=== PATIENT | female | born 1990 | race Caucasian/White ===

== ENCOUNTER 2019-11-12 17:00 | Emergency (ER) | payer SELFPAY ==
[2019-11-12 17:12] VITALS: PULSE 98; RESP 17; TEMP 36.8; O2SAT 98; BMI 48.9
--- NOTE | 2019-11-12 17:21 | W.ED.GENADLT ---
HPI - General Adult General: Chief complaint: General Medical Stated complaint: Sore Throat Time Seen by Provider: 11/12/19 17:14 History of Present Illness: HPI narrative: Patient complains of sore throat last couple 3 days and swelling. Denies fever and chills. Did have a knot come up on the back of her neck. On left side. MD complaint: sore throat Onset (ago): day(s) Associated symptoms: Deny chest pain, dyspnea, headache(s), nausea, rash or vomiting Review of Systems Const: Denies: fever, chills or body aches Eyes: Denies: change in vision or blurry vision ENMT: Reports: painful swallowing; Denies: throat pain or nasal congestion Card: Denies: chest pain or shortness of breath on exertion Resp: Denies: shortness of breath, productive cough or non-productive cough GI: Denies: abdominal pain, nausea or vomiting Musc: Denies: extremity pain Skin/Breast: Denies: rash Neuro: Denies: headache Psych: Denies: anxiety or depression Alden/Lymph: Reports: enlarged lymph nodes (Left posterior neck) and tender lymph nodes; Denies: easy bruising PFSH ED PFSH: Statuses (acute, chronic, etc) shown below reflect problem list status as previously entered and may not be historically accurate Social History Smoking and tobacco status: current every day smoker Female Reproductive History: Date of last menstrual period: 10/22/19 Physical Exam Const: COMMON NORMALS: no apparent distress, average body habitus and oriented x3 HENMT: COMMON NORMALS: normocephalic HEAD & SCALP: normal to inspection and normocephalic FACE & SINUS: normal facial exam THROAT: posterior oropharynx abnormal (Has multiple red spots back of throat at the top.) Eye: COMMON NORMALS: conjunctivae normal GENERAL EYE: normal appearance of both eyes CONJUNCTIVA: Yes conjunctivae normal Neck/C-Spine: COMMON NORMALS: no JVD Lymph: LYMPHATIC: lymphadenopathy (Has 1 nodule swollen left posterior neck) Chest: COMMONS NORMALS: inspection of chest normal Resp: COMMON NORMALS: normal respiratory effort and clear to auscultation bilaterally AUSCULTATION: clear to auscultation bilaterally Cardio: COMMON NORMALS: no JVD, regular rate and regular rhythm RATE: regular rate RHYTHM: regular rhythm GI: COMMON NORMALS: normal to inspection, nondistended, normoactive bowel sounds Extremity: COMMON NORMALS: normal to inspection and full ROM Neuro: COMMON NORMALS: oriented x3 Course Vital Signs: Vital signs: Vital Signs Temperature 98.3 F 11/12/19 17:12 Pulse Rate 98 11/12/19 17:12 Respiratory Rate 17 11/12/19 17:12 Pulse Oximetry 98 11/12/19 17:12 Coding Level of Care Code ED Transportation Director for Ayan Wilson
[2019-11-12] MEDS: cephALEXin 500 mg Capsule PO (18:05)
[2019-11-12] MEDS: predniSONE 20 mg Tablet PO (18:08)
[2019-11-12 18:24] LABS: Monoscreen Negative (Negative); Rapid Strep A Test Positive (Negative)
[2019-11-12 19:00] VITALS: BP 144/67; PULSE 70; RESP 18; O2SAT 97
== END 2019-11-12 19:02 | disposition home or self-care (01) ==
PROVIDERS: Emergency Provider Nurse Practitioner Family; PCP Family Medicine
DX: J02.9 Acute pharyngitis, unspecified (principal); F17.210 Nicotine dependence, cigarettes, uncomplicated
CPT/HCPCS: 86308; 87880; 99282; J7512

== ENCOUNTER 2021-02-18 15:46 | Outpatient (CLI) | payer SELFPAY ==
--- NOTE | 2021-02-18 17:14 | XRR_ITS ---
PROCEDURE INFORMATION: Exam: XR Right Ankle Exam date and time: 02/18/2021 5:17 PM Age: 30 years old Clinical indication: Pain; Ankle; Right; Additional info: RT. Ankle pain x 1 week TECHNIQUE: Imaging protocol: XR Right ankle. Views: 3 or more views. COMPARISON: No relevant prior studies available. FINDINGS: Bones/joints: Medial and lateral malleoli are normal. Ankle mortise is symmetrical. No fracture. Hindfoot is unremarkable. Tibiotalar joint and subtalar joint normal. Soft tissues: Normal. XR/XR ankle RT min 3V* [id number] IMPRESSION: Normal ankle.
== END 2021-02-18 15:47 | disposition home or self-care (01) ==
PROVIDERS: PCP Nurse Practitioner Family; Visit Provider Nurse Practitioner Family
DX: M25.571 Pain in right ankle and joints of right foot (principal)
CPT/HCPCS: 73610

== ENCOUNTER → 2021-10-27 16:23 | Outpatient (BNVA) | payer OTHER, SELFPAY | PROVIDERS: PCP Nurse Practitioner Family; Visit Provider Nurse Practitioner | DX: J02.0 Streptococcal pharyngitis (principal); Z20.822 Contact with and (suspected) exposure to COVID-19 | CPT/HCPCS: 87635; 87880 ==

== ENCOUNTER → 2022-03-14 11:13 | Outpatient (BNVA) | payer MEDICAID, SELFPAY | PROVIDERS: PCP Nurse Practitioner Family; Visit Provider Nurse Practitioner Psychiatric/Mental Health | DX: F33.1 Major depressive disorder, recurrent, moderate (principal); F41.1 Generalized anxiety disorder; F40.10 Social phobia, unspecified; F17.290 Nicotine dependence, other tobacco product, uncomplicated; F12.20 Cannabis dependence, uncomplicated | CPT/HCPCS: 99214 ==

== ENCOUNTER 2022-07-09 07:18 | Outpatient (CLI) | payer MEDICAID, SELFPAY ==
--- NOTE | 2022-07-09 07:30 | MR_ITS ---
WS: [id number] MRI RIGHT KNEE NONCONTRAST TECHNIQUE: Axial PD, coronal PD fat sat, coronal PD, sagittal PD, and sagittal PD fat-sat images obta ined. CLINICAL INFORMATION: R KNEE INSTABILITY COMPARISON: February 03, 2022 FINDINGS: Distal quadriceps and patella tendons are intact. Normal ACL and PCL. Normal medial and lateral menis cus. No acute appearing meniscal tears. Mild chronic thinning of the medial meniscus. Normal lateral collateral ligament. Normal medial collateral ligament. Normal medial and lateral patellar retinaculum. Small amount of subchondral cystic change involving t he lateral femoral condyle. No chondral defect. No edema in this location. Normal popliteal fossa. Ti ny amount of edema in the anterior lateral tibial plateau. Normal patella cartilage. MR/MR knee RT wo con* [id number] IMPRESSION: 1. Normal ACL and PCL. 2. No acute appearing meniscal tears. Mild chronic thinning of the medial meni scus. 3. Normal patella cartilage. 4. Normal medial and lateral collateral ligaments. 5. Normal popliteal fossa. 6. Tiny amount of edema in the anterior lateral tibial plateau. Small amount o f subcutaneous infrapatellar edema. 7. No other suspicious findings. Outbridge grading:
== END 2022-07-09 07:19 | disposition home or self-care (01) ==
PROVIDERS: PCP Nurse Practitioner Family; Visit Provider Nurse Practitioner Family
DX: M25.361 Other instability, right knee (principal)
CPT/HCPCS: 73721

== ENCOUNTER 2023-03-05 10:52 | Outpatient (CLI) | payer MEDICAID, SELFPAY ==
[2023-03-05] VITALS (10 sets, daily range): BP systolic 148–174; BP diastolic 64–81; PULSE 76–86; RESP 16; TEMP 36.6; BMI 55.9
== END 2023-03-05 11:50 | disposition home or self-care (01) ==
LOC: OPOB 10:53 → OBGYN 11:03
PROVIDERS: PCP Nurse Practitioner Family; Visit Provider Family Medicine
DX: O24.419 Gestational diabetes mellitus in pregnancy, unspecified control (principal); Z3A.00 Weeks of gestation of pregnancy not specified
CPT/HCPCS: 59025

== ENCOUNTER 2023-03-19 10:40 | Outpatient (CLI) | payer MEDICAID, SELFPAY ==
[2023-03-19 10:40] VITALS: BMI 55.9
[2023-03-19 10:55] VITALS: BP 143/73
[2023-03-19 11:08] VITALS: BP 134/64; PULSE 85
[2023-03-19 11:23] VITALS: BP 140/64; PULSE 81
[2023-03-19 11:38] VITALS: BP 140/78; PULSE 77
== END 2023-03-19 11:42 | disposition home or self-care (01) ==
LOC: OPOB 10:46 → OBGYN 10:54
PROVIDERS: PCP Nurse Practitioner Family; Visit Provider Family Medicine
DX: O16.9 Unspecified maternal hypertension, unspecified trimester (principal); Z3A.00 Weeks of gestation of pregnancy not specified
CPT/HCPCS: 59025; 99211

== ENCOUNTER 2023-03-23 12:58 | Outpatient (CLI) | payer MEDICAID, SELFPAY ==
[2023-03-23 13:13] VITALS: BP 150/72; PULSE 88
[2023-03-23 13:20] VITALS: BMI 56.5
[2023-03-23 13:25] VITALS: BP 149/72; PULSE 88
[2023-03-23 13:41] VITALS: BP 160/75; PULSE 82
[2023-03-23 13:54] VITALS: BP 156/76; PULSE 74
== END 2023-03-23 13:58 | disposition home or self-care (01) ==
LOC: OPOB 13:02 → OBGYN 13:05
PROVIDERS: PCP Nurse Practitioner Family; Visit Provider Family Medicine
DX: O24.419 Gestational diabetes mellitus in pregnancy, unspecified control (principal); O16.9 Unspecified maternal hypertension, unspecified trimester; Z3A.00 Weeks of gestation of pregnancy not specified
CPT/HCPCS: 59025; 99211

== ENCOUNTER 2023-03-26 14:07 | Outpatient (CLI) | payer MEDICAID, SELFPAY ==
[2023-03-26 14:07] VITALS: BMI 56.5
[2023-03-26 14:21] VITALS: BP 139/77; PULSE 97
[2023-03-26 14:41] VITALS: BP 141/72; PULSE 86
[2023-03-26 15:00] VITALS: BP 141/72; PULSE 86
== END 2023-03-26 15:05 | disposition home or self-care (01) ==
LOC: OPOB 14:09 → OBGYN 14:10
PROVIDERS: PCP Nurse Practitioner Family; Visit Provider Family Medicine
DX: O24.419 Gestational diabetes mellitus in pregnancy, unspecified control (principal); O16.9 Unspecified maternal hypertension, unspecified trimester; Z3A.00 Weeks of gestation of pregnancy not specified
CPT/HCPCS: 59025; 87081; 99211

== ENCOUNTER 2023-03-30 12:02 | Outpatient (CLI) | payer MEDICAID, SELFPAY ==
[2023-03-30 12:21] VITALS: BP 180/80; PULSE 72
[2023-03-30 12:23] VITALS: RESP 16
[2023-03-30 12:25] VITALS: BP 145/82; PULSE 75
[2023-03-30 12:42] VITALS: BP 138/69; PULSE 72
[2023-03-30 12:57] VITALS: BP 140/76; PULSE 73
== END 2023-03-30 13:10 | disposition home or self-care (01) ==
LOC: OPOB 12:06 → OBGYN 12:07
PROVIDERS: PCP Nurse Practitioner Family; Visit Provider Family Medicine
DX: O24.419 Gestational diabetes mellitus in pregnancy, unspecified control (principal); Z3A.00 Weeks of gestation of pregnancy not specified
CPT/HCPCS: 59025

== ENCOUNTER 2023-04-06 06:48 | Inpatient (IN) | payer MEDICAID, SELFPAY ==
[2023-04-06] VITALS (20 sets, daily range): BP systolic 101–157; BP diastolic 55–89; PULSE 56–87; RESP 16; TEMP 36.7; BMI 56.5
[2023-04-06 06:58] LABS: Basophils # 0.1 10^3/uL (0.0-0.1); Basophils % 0.5 %; Eosinophils # 0.2 10^3/uL (0.0-0.8); Hematocrit 39.5 % (37.0-47.0); Hemoglobin 12.9 g/dL (11.5-15.3); Lymphocytes # 3.8 10^3/uL (0.8-4.8); Lymphocytes % 24.9 %; Mean Corpuscular HGB Conc 32.7 g/dL (30.0-36.0); Mean Corpuscular Hemoglobin 28.9 pg (28.0-34.0); Mean Corpuscular Volume 88.4 fl (81-99); Mean Platelet Volume 9.9 fL (7.4-10.4); Monocytes # 1.3 10^3/uL (0.2-0.9); Monocytes % 8.3 %; Neutrophils # 10.01 10^3/uL (1.8-7.7); Nucleated Red Blood Cells % 0 %; Platelet Count 371 10^3/cmm (130-400); Red Blood Count 4.47 10^6/uL (4.1-5.3); Red Cell Distribution Width 13.8 % (12.1-15.1); White Blood Count 15.4 10^3/uL (4.0-10.0)
[2023-04-06 07:12] LABS: Glucose Point of Care 98 mg/dL (70-110)
--- NOTE | 2023-04-06 07:28 | PM.OBGYHP ---
Providers/Chief Complaint Admitting Physician: Dr. 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 The patient had a complicated by the diagnosis of gestational hypertension, gestational diabetes, and morbid obesity. Initial OB lab work was unremarkable. Patient has had blood pressure controlled with labetalol throughout . Patient has remained diet controlled as far as her diabetes. GBS recently was performed and was negative. Patient had polyhydramnios noted on ultrasound and serial growth ultrasounds were performed that were unremarkable. Patient had been having biweekly NSTs since 32 weeks and they remained reactive. Present Details : 2 Para: 1 Labs Rubella: Immune RPR: Negative GBS: Negative HBsAG: Negative Review of Systems Const: Reports: fever(s), chills, body aches and fatigue ENMT: Reports: throat pain and nasal congestion Card: Denies: chest pain Resp: Reports: non-productive cough; Denies: dyspnea or productive cough GI: Denies: nausea, vomiting or diarrhea Neuro: Reports: headache(s); Denies: confusion Medications/Allergies Home Medications Medication Instructions Recorded Confirmed Last Taken Type fluoxetine 40 mg capsule (Prozac) 40 mg PO QAM #30 caps 05/07/22 04/06/23 04/05/23 Rx + Iron 1 tab PO DAILY 03/19/23 04/06/23 04/05/23 History Vitamin D (with calcium) 1 tab PO DAILY 03/19/23 04/06/23 04/05/23 History labetalol 100 mg PO BID 03/19/23 04/06/23 04/05/23 History hydroxyzine HCl PO 04/06/23 04/05/23 History Allergies Allergy/AdvReac Type Severity Reaction Status Date / Time No Known Allergies Allergy Verified 04/06/23 06:51 [facility] 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 PFS: Medical History (Updated 04/06/23 @ 07:33 by Venkatesh Mckeon MD) Cannabis dependence with current use Generalized anxiety disorder Major depressive disorder, recurrent episode, moderate with anxious distress Nicotine dependence due to vaping tobacco product Psychiatric care Social phobia Social History Smoking and tobacco status: current every day smoker History History History 2 Term 1 Miscarriages/Ectopic Living Children 1 Vitals/I&O/Wt Last Vital Signs Pulse 87 04/06/23 06:54 Resp 16 04/06/23 06:26 BP 135/72 04/06/23 06:54 O2 Del Method Room Air 04/06/23 07:02 Weight last 48 hrs Weight 149.232 kg Weight 149.232 kg Physical Exam Const: COMMON NORMALS: no acute distress and alert HENMT: COMMON NORMALS: normocephalic and moist oral mucous membranes Resp: COMMON NORMALS: normal respiratory effort, No retractions and clear to auscultation bilaterally Cardio: COMMON NORMALS: no JVD, regular rate and regular rhythm GI: OTHER: Gravid Extremity: COMMON NORMALS: no clubbing, cyanosis or edema Neuro: COMMON NORMALS: moves all extremities, no focal motor deficits and no sensory deficits noted Psych: COMMON NORMALS: mental status grossly normal and normal affect Skin: COMMON NORMALS: no rashes or lesions noted Data 04/06/23 06:30 A&P Assessment and plan (1) Term , repeat: Proceed with induction of labor using Cytotec. Discussed risks and benefits of the medication including approval for induction. Consent was obtained. (2) Gestational hypertension: Continue labetalol 200 mg twice daily. Start hypertension protocol as needed. (3) Gestational diabetes: Monitor blood sugars fasting and 2 hours postprandial. Attestations Medical Necessity Statement*: Patient admitted for induction of labor. Anticipate at least 1 midnight stay Coding Level of Care Code Acute Code for Chg Fwd Diagnoses Term , repeat Z34.90 Gestational hypertension O13.9 Gestational diabetes O24.419
[2023-04-06] MEDS: miSOPROStol 100 mcg tablet 25 MCG VAGINAL ×3 (08:15→16:46)
[2023-04-06] MEDS: labetalol 200 mg Tablet PO ×2 (08:15→18:35)
[2023-04-06] MEDS: dextrose 5%-lactated ringers 1,000 ML 125 ML IV (21:31)
[2023-04-06] MEDS: acetaminophen 325 mg Tablet 650 MG PO (23:32)
[2023-04-07] VITALS (108 sets, daily range): BP systolic 82–144; BP diastolic 43–87; PULSE 56–87; RESP 16–18; TEMP 36.6–36.9; O2SAT 93–100
[2023-04-07] MEDS: alum-mag-hydroxide-sime 30 mL UDC PO ×3 (00:43→21:10)
[2023-04-07 03:47] LABS: Glucose Point of Care 171 mg/dL (70-110)
[2023-04-07] MEDS: dextrose 5%-lactated ringers 1,000 ML 125 ML IV (05:16)
--- NOTE | 2023-04-07 07:19 | P.PN_ITS ---
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 She was given 3 doses of Cytotec without significant change to her cervix. Started on Pitocin overnight and into the good contraction pattern but was not significantly uncomfortable and made no cervical change. Labor: Station: -3 Amniotic Membrane Status: Intact Monitor Mode: External Contraction Pattern: Regular Vitals/I&O/Wt Last Vital Signs Temp 98.0 F 04/06/23 10:00 Pulse 69 04/07/23 07:06 Resp 16 04/06/23 23:31 BP 144/79 04/07/23 06:55 Pulse Ox 99 04/07/23 07:06 O2 Del Method Room Air 04/06/23 07:02 04/06/23 04/07/23 04/07/23 22:59 06:59 14:59 Intake Total 1365.183 / 1365.183 Balance 1365.183 / 1365.183 Weight last 48 hrs Weight 149.232 kg Weight 149.232 kg Physical Exam Const: COMMON NORMALS: no acute distress and alert HENMT: COMMON NORMALS: normocephalic and moist oral mucous membranes HEAD & SCALP: normocephalic Neck/C-Spine: COMMON NORMALS: no JVD Resp: COMMON NORMALS: normal respiratory effort, No retractions and clear to auscultation bilaterally AUSCULTATION: clear to auscultation bilaterally Cardio: COMMON NORMALS: no JVD, regular rate and regular rhythm RATE: regular rate RHYTHM: regular rhythm GI: OTHER: Gravid Extremity: COMMON NORMALS: no clubbing, cyanosis or edema Neuro: COMMON NORMALS: moves all extremities, no focal motor deficits and no sensory deficits noted SENSORIUM/ORIENTATION: Yes alert Psych: COMMON NORMALS: mental status grossly normal and normal affect Skin: COMMON NORMALS: no rashes or lesions noted GENERAL SKIN EXAM: no r ashes or lesions noted Data 04/06/23 06:30 A&P Assessment and plan (1) Term , repeat: Continue induction with Pitocin. Once cervix opens up then rupture membranes would be beneficial. (2) Gestational hypertension: Continue labetalol 200 mg twice daily. hypertension protocol as needed. (3) Gestational diabetes: Monitor blood sugars fasting and 2 hours postprandial. Attestations Medical Necessity Statement*: Admit for IOL 2/2 GDM and Gestational HTN Coding Level of Care Code Acute Code for Chg Fwd Diagnoses Term , repeat Z34.90 Gestational hypertension O13.9 Gestational diabetes O24.419
[2023-04-07] MEDS: acetaminophen 325 mg Tablet 650 MG PO ×2 (10:59→21:16)
[2023-04-07] MEDS: labetalol 200 mg Tablet PO ×2 (10:59→21:11)
[2023-04-07] MEDS: miSOPROStol 100 mcg tablet 25 MCG VAGINAL (13:20)
[2023-04-07 21:11] LABS: Glucose Point of Care 87 mg/dL (70-110)
[2023-04-07] MEDS: hyDROXYzine 25 mg Capsule 50 MG PO (21:11)
[2023-04-08] VITALS (58 sets, daily range): BP systolic 119–164; BP diastolic 57–100; PULSE 56–111; RESP 16–18; TEMP 36.4–37.1; O2SAT 98–99
[2023-04-08] MEDS: HYDROcodone-acetaminophen 5-325 mg Tablet 1 TAB PO (06:06)
--- NOTE | 2023-04-08 07:31 | PM.OBGYPN ---
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 Patient has received a total of 4 doses of Cytotec and several hours of Pitocin without significant changes to her cervix except for softening. She still remains closed cervically. However, her Pitocin has been restarted and she is now much more comfortable with her contractions. Labor: Station: -3 Amniotic Membrane Status: Intact Monitor Mode: External Contraction Pattern: Irregular Vitals/I&O/Wt Last Vital Signs Temp 97.6 F 04/08/23 05:50 Pulse 80 04/08/23 07:13 Resp 18 04/07/23 13:59 BP 144/95 04/08/23 07:13 Pulse Ox 97 04/07/23 21:27 O2 Del Method Room Air 04/06/23 07:02 04/07/23 04/08/23 04/08/23 22:59 06:59 14:59 Intake Total 600 / 645 Balance 600 / 645 Physical Exam Const: COMMON NORMALS: no acute distress and alert HENMT: COMMON NORMALS: normocephalic and moist oral mucous membranes HEAD & SCALP: normocephalic Neck/C-Spine: COMMON NORMALS: no JVD Resp: COMMON NORMALS: normal respiratory effort, No retractions and clear to auscultation bilaterally AUSCULTATION: clear to auscultation bilaterally Cardio: COMMON NORMALS: no JVD, regular rate and regular rhythm RATE: regular rate RHYTHM: regular rhythm GI: OTHER: Gravid Extremity: COMMON NORMALS: no clubbing, cyanosis or edema Neuro: COMMON NORMALS: moves all extremities, no focal motor deficits and no sensory deficits noted SENSORIUM/ORIENTATION: Yes alert Psych: COMMON NORMALS: mental status grossly normal and normal affect Skin: COMMON NORMALS: no rashes or lesions noted GENERAL SKIN EXAM: no rashes or lesions noted Data 04/06/23 06:30 A&P Assessment and plan (1) Term , repeat: Continue induction with Pitocin. Once cervix opens up then rupture membranes would be beneficial. (2) Gestational hypertension: Continue labetalol 200 mg twice daily. hypertension protocol as needed. (3) Gestational diabetes: Monitor blood sugars fasting and 2 hours postprandial. Attestations Medical Necessity Statement*: continue admission for IOL Coding Level of Care Code Acute Code for Chg Fwd Diagnoses Term , repeat Z34.90 Gestational hypertension O13.9 Gestational diabetes O24.419
[2023-04-08] MEDS: labetalol 200 mg Tablet PO ×2 (08:51→21:16)
[2023-04-08] MEDS: lactated ringers 1,000 ML 999 ML IV (08:52)
[2023-04-08] MEDS: dextrose 5%-lactated ringers 1,000 ML 125 ML IV ×2 (08:52→16:27)
--- NOTE | 2023-04-08 09:08 | ANES.PREANE2 ---
Pre-Anesthetic Assessment Height/Weight: Height 1.63 m Weight 149.232 kg Temp Pulse Resp BP Pulse Ox O2 Del Method 97.6 F 67 18 138/81 98 Room Air 04/08/23 05:50 04/08/23 08:47 04/07/23 13:59 04/08/23 08:47 04/08/23 08:28 04/06/23 07:02 Familial anesthetic complications: none Was Beta Perlita taken within 24 hours: N/A Was Clonidine taken within 24 hours: N/A Social Tobacco and No alcohol [place] Exam alert, oriented x 3, clear to auscultation bilaterally and regular rate & rhythm Airway Submandibular: within normal limits Cervical ROM: within normal limits Mallampati: Class II Dentition: full CV/HEM Hypertension (gestational) Metabolic Diabetes Mellitus (gestational) and Morbid Obesity Neuropsych Anxiety and Depression Anesthetic Plan ASA status: 3 Anesthesia: Regional (specify below) (labor epidural) Medications/Allergies Home Medications Medication Instructions Recorded Confirmed Last Taken Type fluoxetine 40 mg capsule (Prozac) 40 mg PO QAM #30 caps 05/07/22 04/06/23 04/05/23 Rx + Iron 1 tab PO DAILY 03/19/23 04/06/23 04/05/23 History Vitamin D (with calcium) 1 tab PO DAILY 03/19/23 04/06/23 04/05/23 History labetalol 100 mg PO BID 03/19/23 04/06/23 04/05/23 History hydroxyzine HCl PO 04/06/23 04/05/23 History Allergies Allergy/AdvReac Type Severity Reaction Status Date / Time No Known Allergies Allergy Verified 04/06/23 06:51 Current Medications Generic Name Dose Route Start Last Admin Trade Name Freq PRN Reason Stop Dose Admin Acetaminophen 650 mg 04/06/23 06:48 04/07/23 21:16 Acetaminophen 325 Mg Tablet PO 650 mg Q6H PRN Administration Mild pain or temp > 100.4 Al Hydrox/Mg Hydrox/Simethicone 30 ml 04/06/23 06:48 04/07/23 21:10 Txyt-Qgd-Qxrvptfcu-Allen 30 Ml Udc PO 30 ml Q4H PRN Administration Indigestion (Use 2nd) Hydroxyzine Pamoate 50 mg 04/06/23 06:48 04/07/23 21:11 Hydroxyzine 25 Mg Capsule PO 50 mg QID PRN Administration sleep, agitation or itching Dextrose/Lactated Ringer's 1,000 mls @ 125 mls/hr 04/06/23 07:00 04/08/23 08:52 Dextrose 5%-Lactated Ringers IV 125 mls/hr .Q8H MAYLIN Administration Oxytocin 30 unit/ Sodium 503 mls @ 1 mls/hr 04/06/23 21:15 04/07/23 09:00 Chloride IV 20 mls/hr .Q24H MAYLIN 20 mls/hr Titration Protocol Lactated Ringer's 1,000 mls @ 999 mls/hr 04/08/23 07:31 04/08/23 08:52 Lactated Ringers IV 999 mls/hr .Q1H1M PRN Administration See label comments Ropivacaine 100 mg in 50 mls @ 10 mls/hr 04/08/23 07:45 04/08/23 08:53 Naropin Syringe EPIDURAL 10 mls/hr .Q5H MAYLIN Administration Labetalol HCl 200 mg 04/06/23 09:00 04/08/23 08:51 Labetalol 200 Mg Tablet PO 200 mg BID MAYLIN Administration Misoprostol 25 mcg 04/06/23 07:25 04/06/23 16:46 Misoprostol 100 Mcg Tablet VAGINAL 25 mcg Q4H PRN Administration cerivcal ripening Misoprostol 25 mcg 04/07/23 12:30 04/07/23 13:20 Misoprostol 100 Mcg Tablet VAGINAL 25 mcg ONCE PRN Administration OTHER [facility] Anesthesia Medical History (Updated 04/06/23 @ 07:33 by Venkatesh Mckeon MD) Cannabis dependence with current use Generalized anxiety disorder Major depressive disorder, recurrent episode, moderate with anxious distress Nicotine dependence due to vaping tobacco product Psychiatric care Social phobia Social History Smoking and tobacco status: current every day smoker Female Reproductive History : 2 Data Anesthesia 04/06/23 06:30 Cardiac Studies: No Data to Display Anesthesia Procedures Epidural Time Out Performed: Yes Consents Signed: Procedure Consent Consent: requested by attending/covering physician, from patient, risks and benefits reviewed and patient agrees to proceed Lumbar Level: L3-L4 Epidural position: sitting Epidural procedure: sterile prep of area, 1% lidocaine to numb the area, 18 g needle, neg for paresthesia, test dose given, 0.2% Ropivacaine bolus ml (5), placed PCEA, no systemic response, sterile dressing applied and 0.2% Ropiavacaine @ mls/hr (10) Additional Comments: JUSTEN at 7cm, cath at 12cm
[2023-04-08] MEDS: ondansetron 2 mg/ML SDV 2 mL 4 MG IVP (09:10)
--- NOTE | 2023-04-08 15:23 | PC.NURSE ---
IV IN RIGHT WRIST INFILTERED, SO RESTARTED IV IN LEFT WRIST AND THEN REMOVED THE ONE IN RIGHT WRIST.
[2023-04-09] VITALS (56 sets, daily range): BP systolic 118–164; BP diastolic 57–95; PULSE 57–96; RESP 16–20; TEMP 36.1–37.3; O2SAT 96–97
[2023-04-09] MEDS: dextrose 5%-lactated ringers 1,000 ML 125 ML IV ×2 (00:05→09:16)
--- NOTE | 2023-04-09 07:40 | PM.OBGYPN ---
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 Patient received Pitocin and positional changes overnight. She is now completely dilated. [facility]) is working well for her. No other concerns. Labor: Station: 0 Amniotic Membrane Status: Ruptured Monitor Mode: External Contraction Pattern: Regular Vitals/I&O/Wt Last Vital Signs Temp 98.2 F 04/09/23 05:06 Pulse 68 04/09/23 07:17 Resp 16 04/08/23 16:35 BP 131/68 04/09/23 07:17 Pulse Ox 98 04/08/23 08:28 O2 Del Method Room Air 04/06/23 07:02 04/08/23 04/09/23 04/09/23 22:59 06:59 14:59 Intake Total 1047.917 / 4690.673 0565.334 / 2381.417 Output Total 700 / 700 275 / 975 Balance 347.917 / 458.083 948.334 / 1406.417 Physical Exam Const: COMMON NORMALS: no acute distress and alert HENMT: COMMON NORMALS: normocephalic and moist oral mucous membranes HEAD & SCALP: normocephalic Neck/C-Spine: COMMON NORMALS: no JVD Resp: COMMON NORMALS: normal respiratory effort and No retractions Cardio: COMMON NORMALS: no JVD and regular rate RATE: regular rate GI: OTHER: Gravid Extremity: COMMON NORMALS: no clubbing, cyanosis or edema Neuro: SENSORIUM/ORIENTATION: Yes alert Psych: COMMON NORMALS: mental status grossly normal and normal affect Skin: COMMON NORMALS: no rashes or lesions noted GENERAL SKIN EXAM: no rashes or lesions noted Urinary Catheter Management: [place]: Cath Placed During This Visit: yes Reason for Continuing Indwelling Catheter: Required Immobilization for Trauma or Surgery or Anesthesia Urinary Catheter Date of Insertion: 04/08/23 Urinary Catheter Time of Insertion: 08:45 Data 04/06/23 06:30 A&P Assessment and plan (1) Term , repeat: Patient is now completely dilated. We will proceed with pushing at this time. (2) Gestational hypertension: Continue labetalol 200 mg twice daily. hypertension protocol as needed. (3) Gestational diabetes: Monitor blood sugars fasting and 2 hours postprandial. Attestations Medical Necessity Statement*: Anticipate another midnight stay. Patient initially admitted for induction of labor due to gestational hypertension and gestational diabetes. Coding Level of Care Code Acute Code for Chg Fwd Diagnoses Term , repeat Z34.90 Gestational hypertension O13.9 Gestational diabetes O24.419
--- NOTE | 2023-04-09 10:54 | PC.NURSE ---
0915 PLACED KUHN CATH WITHOUT DIFFICULTY 1ST ONE WAS REMOVED WHEN PATIENT STARTED PUSHING AT 0730.
[2023-04-09] MEDS: ondansetron 2 mg/ML SDV 2 mL 4 MG IVP (11:41)
--- NOTE | 2023-04-09 12:37 | PM.DELIVERY ---
Delivery Note: Date of delivery: April 09, 2023 Pre-delivery diagnoses: Term intrauterine , gestational diabetes, gestational hypertension. Post-delivery diagnoses: Same, viable infant male Procedure: Spontaneous vaginal delivery Delivering Physician: Dr. Venkatesh Mckeon Estimated blood loss (mL): 300 Pre-Delivery Course: This is a 32-year-old that presented at 38 weeks for induction. The patient received multiple doses of Cytotec and Pitocin to initiate labor over the last several days. Patient finally made to complete and there was some asynclitism which delayed delivery. Delivery: After completion the patient did have 1 hour of pushing without significant change. The patient did labor down for several hours. Once patient was placed back into lithotomy position and pushing was initiated baby did drop significantly and with the next push the patient delivered a viable male without difficulty. The was placed on mother's abdomen and delayed cord clamping was initiated. The cord was then clamped and cut. The patient then delivered the placenta without incident. The perineum did not demonstrate any significant tears. Uterus was firm and bleeding was minimal. Post-Delivery Status: Stable, bleeding controlled. History History History 2 Term 1 Miscarriages/Ectopic Living Children 1 A&P Assessment and plan (1) Gestational hypertension: Continue labetalol 200 mg twice daily. hypertension protocol as needed. (2) Gestational diabetes: Monitor blood sugars fasting and 2 hours postprandial. (3) Vaginal delivery: Begin routine care Coding Level of Care Code Acute Code for Chg Fwd Diagnoses Gestational hypertension O13.9 Gestational diabetes O24.419 Vaginal delivery O80
[2023-04-09] MEDS: benzocaine-menthol 78 gm Canister 1 SPRAY TOPICAL (13:31)
[2023-04-09] MEDS: lanolin oint 7 gm 1 APPLIC TOPICAL (13:32)
[2023-04-09] MEDS: ibuprofen 800 mg tablet PO ×2 (13:32→20:20)
[2023-04-09] MEDS: HYDROcodone-acetaminophen 5-325 mg Tablet PO ×2 (13:32→20:20)
--- NOTE | 2023-04-09 15:45 | ANE.PACU2 ---
Inpatient post-anesthesia follow up: Airway intact: Yes Vital signs: Temperature 98.7 F Pulse Rate 86 Respiratory Rate 18 Blood Pressure 162/83 Pulse Oximetry 98 Oxygen Delivery Me thod Room Air Oxygen Flow Rate 10 Fraction of Inspir ed Oxygen Hydration adequate: Yes Nausea and vomiting: No Pain level: 2 Mental status: Baseline
--- NOTE | 2023-04-09 17:02 | PC.NURSE ---
MOVED PATIENT OVER TO OB 9 ORIENTED TO ROOM, CALL LIGHT AND PP PACK.
--- NOTE | 2023-04-09 19:36 | PC.NURSE ---
1630 IV REMOVED PER PATIENTS REQUEST, SHE HAS BEEN STABLE THIS JUMPBASTING CANVAS BASTER DID TELL HER THAT IV SHE NEEDED IV THAT WE WOULD HAVE TO RESTICK HER AND SHE WAS GOOD WITH THAT.
--- NOTE | 2023-04-09 19:37 | PC.NURSE ---
GAVE REPORT TO ANUP.
[2023-04-09] MEDS: docusate sodium 100 mg Capsule PO (20:20)
[2023-04-09] MEDS: labetalol 200 mg Tablet PO (20:21)
[2023-04-09 22:38] LABS: Hematocrit 35.8 % (37.0-47.0); Hemoglobin 11.5 g/dL (11.5-15.3); Mean Corpuscular HGB Conc 32.1 g/dL (30.0-36.0); Mean Corpuscular Hemoglobin 28.9 pg (28.0-34.0); Mean Corpuscular Volume 89.9 fl (81-99); Mean Platelet Volume 10.1 fL (7.4-10.4); Platelet Count 326 10^3/cmm (130-400); Red Blood Count 3.98 10^6/uL (4.1-5.3); Red Cell Distribution Width 13.9 % (12.1-15.1); White Blood Count 25.6 10^3/uL (4.0-10.0)
[2023-04-10 04:00] VITALS: BP 146/82; PULSE 71; RESP 18; TEMP 36.6; TEMP 36.7; O2SAT 96
[2023-04-10] MEDS: HYDROcodone-acetaminophen 5-325 mg Tablet PO ×2 (04:02→09:33)
--- NOTE | 2023-04-10 07:36 | PM.OBGYDC ---
Discharge Providers BODY SHOP ESTIMATOR Date of Admission: 04/06/23 06:48 Date of Discharge: 04/10/23 Attending Provider at Admission: Venkatesh Mckeon MD Attending Provider at Discharge: Venkatesh Mckeon MD Primary Care Provider: Herlinda Laurent Diagnoses at Discharge Discharge Diagnosis (1) Gestational hypertension: Details from hospital stay: Blood pressure remained controlled during labor. Status: Acute (2) Gestational diabetes: Status: Acute (3) Vaginal delivery: Status: Acute Reason for Visit Reason for Visit: IOL Hospital Course Hospital Course This is a 32-year-old that presented for induction of labor due to gestational diabetes and hypertension. Patient was initially started on Cytotec and received 3 doses without significant cervical change. The patient was given Pitocin after that and no further change was noted although she had a good contraction pattern. Zosyn was stopped and another dose of Cytotec was given. After that the patient was restarted on Pitocin where she finally dilated enough to have a rupture membranes which occurred continuously. She then progressed slowly to complete overnight. Patient started pushing but no significant progress was noted so the patient was labor down and positional changes was performed to help with presumed asynclitism. Once baby was in better position he dropped into the vaginal canal and she was able to deliver a viable infant male. Post care was unremarkable. Information Peripartum Data: Delivery Method: Vaginal Laceration description: None Episiotomy description: None complications: none Physical Exam Const: COMMON NORMALS: no acute distress and alert HENMT: COMMON NORMALS: normocephalic and moist oral mucous membranes HEAD & SCALP: normocephalic Neck/C-Spine: COMMON NORMALS: no JVD Resp: COMMON NORMALS: normal respiratory effort and No retractions Cardio: COMMON NORMALS: no JVD and regular rate RATE: regular rate GI: OTHER: Gravid Extremity: COMMON NORMALS: no clubbing, cyanosis or edema Neuro: SENSORIUM/ORIENTATION: Yes alert Psych: COMMON NORMALS: mental status grossly normal and normal affect Skin: COMMON NORMALS: no rashes or lesions noted GENERAL SKIN EXAM: no rashes or lesions noted Urinary Catheter Management: [place]: Cath Placed During This Visit: yes, but has since been removed by the nurse Reason for Continuing Indwelling Catheter: Other Urinary Catheter Date of Insertion: 04/08/23 Urinary Catheter Time of Insertion: 08:45 Date Urinary Catheter Removed: 04/09/23 Time Urinary Catheter Discontinued: 07:35 History History History 2 Term 2 Miscarriages/Ectopic Living Children 2 Discharge Data Studies Completed and Pending Laboratory Results WBC 25.6 10^3/uL (4.0-10.0) H 04/09/23 22:28 RBC 3.98 10^6/uL (4.1-5.3) L 04/09/23 22:28 Hgb 11.5 g/dL (11.5-15.3) 04/09/23 22:28 Hct 35.8 % (37.0-47.0) L 04/09/23 22:28 MCV 89.9 fl (81-99) 04/09/23 22:28 MCH 28.9 pg (28.0-34.0) 04/09/23 22:28 MCHC 32.1 g/dL (30.0-36.0) 04/09/23 22:28 RDW 13.9 % (12.1-15.1) 04/09/23 22:28 Plt Count 326 10^3/cmm (130-400) 04/09/23 22:28 MPV 10.1 fL (7.4-10.4) 04/09/23 22:28 Neut % (Auto) 65.0 % 04/06/23 06:30 Lymph % (Auto) 24.9 % 04/06/23 06:30 [place] % (Auto) 8.3 % 04/06/23 06:30 Eos % (Auto) 1.0 % 04/06/23 06:30 Baso % (Auto) 0.5 % 04/06/23 06:30 Neut # (Auto) 10.01 10^3/uL (1.8-7.7) H 04/06/23 06:30 Lymph # (Auto) 3.8 10^3/uL (0.8-4.8) 04/06/23 06:30 [place] # (Auto) 1.3 10^3/uL (0.2-0.9) H 04/06/23 06:30 Eos # (Auto) 0.2 10^3/uL (0.0-0.8) 04/06/23 06:30 Baso # (Auto) 0.1 10^3/uL (0.0-0.1) 04/06/23 06:30 Nucleated RBC % (auto) 0 % 04/06/23 06:30 Nucleated RBCs # 0.0 /100WBC 04/06/23 06:30 POC Glucose 87 mg/dL (70-110) 04/07/23 21:07 Vitals Last Vital Signs Temp 98.0 F 04/10/23 04:00 Pulse 71 04/10/23 04:00 Resp 18 04/10/23 04:00 BP 146/82 04/10/23 04:00 Pulse Ox 96 04/10/23 04:00 O2 Del Method Room Air 04/10/23 04:00 O2 Flow Rate 10 04/09/23 08:40 Discharge Plan Discharge Patient Disposition: Home Prescriptions: Continued fluoxetine [Prozac] 40 mg capsule 40 mg PO QAM Qty: 30 6RF Rx Instructions: Take one capsule every morning + Iron 1 tab PO DAILY Vitamin D (with calcium) 1 tab PO DAILY labetalol 100 mg PO BID hydroxyzine HCl PO Discharge Orders: Discharge Order (Routine); Ordered 04/10/23 Ordered By: Venkatesh Mckeon Referrals: Venkatesh Mckeon MD [Physician] - 6 Weeks Discharge Diet: Usual diet Discharge Activity: Limit activity as instructed Patient Instructions: Opioid Safety Discharge Attestations BODY SHOP ESTIMATOR Time Spent in Discharge Care*: less than 30 min Coding Level of Care Code Acute Code for Chg Fwd Diagnoses Gestational hypertension O13.9 Gestational diabetes O24.419 Vaginal delivery O80
[2023-04-10] MEDS: docusate sodium 100 mg Capsule PO (09:32)
[2023-04-10] MEDS: labetalol 200 mg Tablet PO (09:33)
[2023-04-10] MEDS: ibuprofen 800 mg tablet PO ×2 (09:33→15:01)
[2023-04-10] MEDS: prenatal vitamin Capsule 1 CAP PO (09:33)
[2023-04-10 10:30] VITALS: BP 119/82; PULSE 79; RESP 18; TEMP 36.8
[2023-04-10 15:07] VITALS: BP 150/79; PULSE 87; RESP 17; TEMP 36.8
[2023-04-10 15:22] VITALS: BP 150/86; PULSE 80; RESP 17; TEMP 36.8
== END 2023-04-10 15:25 | disposition home or self-care (01) | DRG 806 ==
LOC: OPOB 18:46 → OBGYN 18:46
PROVIDERS: Admitting Provider Family Medicine; PCP Nurse Practitioner Family; Visit Provider Family Medicine
DX: O10.02 Pre-existing essential hypertension complicating childbirth (principal); F33.1 Major depressive disorder, recurrent, moderate; Z37.0 Single live birth; O99.324 Drug use complicating childbirth; O99.334 Smoking (tobacco) complicating childbirth; F17.290 Nicotine dependence, other tobacco product, uncomplicated; O99.344 Other mental disorders complicating childbirth; O99.214 Obesity complicating childbirth; E66.01 Morbid (severe) obesity due to excess calories; O24.420 Gestational diabetes mellitus in childbirth, diet controlled; F12.20 Cannabis dependence, uncomplicated; Z3A.38 38 weeks gestation of pregnancy; F41.1 Generalized anxiety disorder; F40.10 Social phobia, unspecified
CPT/HCPCS: 36415; 36416; 51702; 59025; 59409; 82962; 85025; 85027; 96374; 96376; 99211; J2405; J2795; J7040; J7120; J7121

== ENCOUNTER 2023-10-13 12:17 | Outpatient (CLI) | payer MEDICAID, SELFPAY ==
--- NOTE | 2023-10-13 12:15 | CT_ITS ---
WS: [id number] CT RIGHT ANKLE, NONCONTRAST, 3D. HISTORY: Right ankle fracture Technique: All CT scans at [facility] use at least one of these dose optimization techniques: automated exposure control; mA and/or kV adjustment per patient size (includes targeted exams where dose is matched to clinical indication); or iterative reconstruction. DLP: 141.35 mGy.cm COMPARISON: 10/09/2023 Acute oblique fracture extending through the distal 5.8 cm of the fibula. There is small bony osseous fragments along the distal fracture site. Fracture by 4 mm. Additional small osseous density by the posterior medial malleolus. Consistent with small acute avuls ion fractures. There is widening of the ankle mortise. Medial ankle mortise measures up to 6.5 mm. No fracture along the talar dome. Posterior malleolus is normal. The calcaneus and talus are normal. No fractures. Moderate amount of soft tissue edema surrounding th e ankle. IMPRESSION: 1. Oblique minimally displaced fracture through the distal 5.8 cm of the fibula. 2. Small acute avulsion fractures from the posterior medial malleolus. 3. Widening of the medial ankle mortise up to 6.5 mm.
== END 2023-10-13 12:18 | disposition home or self-care (01) ==
LOC: RAD 12:18
PROVIDERS: PCP Nurse Practitioner Family; Visit Provider Podiatrist Foot & Ankle Surgery
DX: S82.431A Displaced oblique fracture of shaft of right fibula, initial encounter for closed fracture (principal); S82.51XA Displaced fracture of medial malleolus of right tibia, initial encounter for closed fracture; S82.841A Displaced bimalleolar fracture of right lower leg, initial encounter for closed fracture; X58.XXXA Exposure to other specified factors, initial encounter
CPT/HCPCS: 73700

== ENCOUNTER 2023-10-14 05:46 | Day surgery (SDC) | payer MEDICAID, SELFPAY ==
[2023-10-14] VITALS (12 sets, daily range): BP systolic 97–185; BP diastolic 70–104; PULSE 71–115; RESP 16–18; TEMP 36.1–36.3; O2SAT 92–100
--- NOTE | 2023-10-14 | XR_ITS ---
WS: [id number] INTRAOPERATIVE TECHNIQUE: 2 Spot fluoroscopic images for intraoperative purposes. FLUOROSCOPY TIME: 2 minutes 28 seconds seconds CLINICAL INFORMATION: orif bimalleolar, or pic COMPARISON: None. FINDINGS: Intraoperative changes plate and screw fixation distal fibula and lateral malleolus. Screw fixation a cross the tibial plafond. IMPRESSION: Images obtained for intraoperative purposes.
[2023-10-14] MEDS: sodium chloride 0.9% 1,000 ML 30 ML IV (06:23)
[2023-10-14] MEDS: gabapentin 300 mg Capsule PO (06:23)
[2023-10-14] MEDS: acetaminophen 1,000 MG/100 ML PIGGYBACK 400 MG IV (06:23)
[2023-10-14 06:43] LABS: OR HCG Qualitative Urine Negative (Negative)
[2023-10-14] MEDS: scopolamine 1.5 Patch 1 PATCH TRANSDERMA (06:48)
[2023-10-14] MEDS: HYDROmorphone 1 mg/mL INJ 1 mL 0.5 MG IVP ×2 (06:48→09:05)
--- NOTE | 2023-10-14 06:51 | W.PM.OPSUD ---
Surgery/Procedure H&P Update DATE OF PROCEDURE: October 14, 2023 DATE H&P PERFORMED: 10/12/23 H&P UPDATE INFORMATION: I have reviewed H&P completed within last 30 days, I have examined patient prior to procedure, No changes to prior documentation and H&P is in [facility] [place] EMR on date indicated PREOP DIAGNOSIS: Right bimalleolar ankle fracture PLANNED PROCEDURE: Operation Date: 10/14/23 07:00 Proposed Procedures p ?Open reduction internal fixation right bimalleolar ankle fracture 07185,S82.841A(Right) - Cedrick Moreno DPM
[2023-10-14] MEDS: ceFAZolin 2,000 MG in sodium chloride 0.9% (plus) 50 ML 100 MG IV (07:05)
[2023-10-14] MEDS: ceFAZolin 1,000 mg SDV 1000 MG IVP (07:54)
--- NOTE | 2023-10-14 08:47 | P.BOP_ITS ---
Date of procedure: 10/14/2023 Surgeon name: Samantha LangePAnand Supervisor Paste Mixing(s) name(s): Ginette Procedure(s) performed: Open reduction internal fixation right bimalleolar equivalent Description of findings: Right bimalleolar equivalent Estimated blood loss: 30 cc Tourniquet time: 60 minutes Specimen(s) removed: None Post-operative diagnosis: Bimalleolar ankle fracture right ankle
[2023-10-14] MEDS: fentaNYL 50 mcg/mL INJ 2mL IVP (08:55)
[2023-10-14] MEDS: ketorolac 30 mg/mL INJ IVP (09:18)
--- NOTE | 2023-10-14 10:07 | P.ANESASSM_ITS ---
Pre-Anesthetic Assessment Height/Weight: Height 1.63 m Weight 145.15 kg Temp Pulse Resp BP Pulse Ox O2 Del Method 97 F L 75 16 136/91 93 Room Air 10/14/23 09:47 10/14/23 09:47 10/14/23 09:47 10/14/23 09:47 10/14/23 09:47 10/14/23 09:47 Preop Diagnosis: Right bimalleolar ankle fracture Operation Date: 10/14/23 07:00 Proposed Procedures p ?Open reduction internal fixation right bimalleolar ankle fracture 53537,S82.841A(Right) - Cedrick Moreno DPM Familial anesthetic complications: none Was Beta Perlita taken within 24 hours: N/A Was Clonidine taken within 24 hours: N/A Last intake: Intake Last Liquid Date 10/13/23 Last Liquid Time 20:30 Last Solid Date 10/13/23 Last Solid Time 20:30 Social Tobacco and No alcohol Rylee Exam alert, oriented x 3, clear to auscultation bilaterally and regular rate & rhythm Airway Submandibular: within normal limits Cervical ROM: within normal limits Mallampati: Class II Dentition: chipped Metabolic Morbid Obesity Neuropsych Anxiety and Depression Anesthetic Plan ASA status: 3 Anesthesia: General and Regional (specify below) (Right pop blk) Medications/Allergies Home Medications Medication Instructions Recorded Confirmed Last Taken Type + Iron 1 tab PO DAILY 03/19/23 10/13/23 10/13/23 History escitalopram oxalate 10 mg tablet 10 mg PO DAILY 07/16/23 10/13/23 10/13/23 History (Lexapro) Shower chair #1 ea 10/12/23 10/12/23 Unknown Rx Wheelchair #1 ea 10/12/23 10/12/23 Unknown Rx buspirone 10 mg tablet 10 mg PO BID 10/12/23 10/13/23 10/13/23 History hydrocodone 5 mg-acetaminophen 325 1 tab PO Q6H PRN pain 3 days #12 10/12/23 10/13/23 10/14/23 Rx mg tablet tabs hydrocodone 5 mg-acetaminophen 325 1 tab PO Q6H PRN pain #28 tabs 10/14/23 Unknown Rx mg tablet Allergies Allergy/AdvReac Type Severity Reaction Status Date / Time No Known Allergies Allergy Verified 10/14/23 06:13 Current Medications Generic Name Dose Route Start Last Admin Trade Name Freq PRN Reason Stop Dose Admin Fentanyl 50 mcg 10/14/23 09:05 10/14/23 08:55 Fentanyl 50 Mcg/Ml Inj 2ml IVP 10/15/23 09:05 50 mcg Q5M PRN Administration Pain level 1-5 PACU Phase I Hydromorphone HCl 0.5 mg 10/14/23 05:51 10/14/23 06:48 Hydromorphone 1 Mg/Ml Inj 1 Ml IVP 0.5 mg ONCE PRN Administration For preop pain/anxiety Hydromorphone HCl 0.5 mg 10/14/23 09:05 10/14/23 09:05 Hydromorphone 1 Mg/Ml Inj 1 Ml IVP 10/15/23 09:05 0.5 mg Q10M PRN Administration Pain level 6-10 PACU Phase I Sodium Chloride 1,000 mls @ 30 mls/hr 10/14/23 06:00 10/14/23 06:23 Sodium Chloride 0.9% IV 10/15/23 05:59 30 mls/hr .Q24H MAYLIN Administration [facility] Anesthesia Medical History (Updated 10/12/23 @ 14:55 by Cedrick Moreno DPM) Gestational diabetes Term , repeat Cannabis dependence with current use Nicotine dependence due to vaping tobacco product Social phobia Generalized anxiety disorder Major depressive disorder, recurrent episode, moderate with anxious distress Social History Smoking and tobacco/nicotine status: current every day tobacco/nicotine user Data Anesthesia Cardiac Studies: No Data to Display Anesthesia Procedures Nerve Block Nerve Block 1: Main Anesthesia: general anesthesia Time Out Performed: Yes Consent: requested by attending/covering physician, from patient, risks and benefits reviewed and patient agrees to proceed Nerve block location: popliteal (right) Anesthesia monitors applied: pulse oximetry, EKG, BP cuff and oxygen Nerve block position: supine Anesthetic Used: ropivicaine 0.5% Amount of anesthesia used (mL): 50 Ultrasound used to: recognize landmarks Nerve Stimulator Used?: No Interscalene/Femoral BLK: 4 stimuplex 21 g needle used for position and inplane approach Injection: neg aspiration of heme Patient Tolerated Procedure: well Additional Comments: Block performed in OR with 30mls, postop pain control not good, repeated block in PACU with 20mls of local with good pain control.
[2023-10-14] MEDS: HYDROcodone-acetaminophen 5-325 mg Tablet 1 TAB PO (10:21)
--- NOTE | 2023-10-14 13:32 | ANE.PACU2 ---
Inpatient post-anesthesia follow up: Airway intact: Yes Vital signs: Temperature 97 F Pulse Rate 79 Respiratory Rate 16 Blood Pressure 124/70 Pulse Oximetry 96 Oxygen Delivery Me thod Room Air Oxygen Flow Rate Fraction of Inspir ed Oxygen Hydration adequate: Yes Nausea and vomiting: No Pain level: 2 Mental status: Baseline
--- NOTE | 2023-10-14 21:00 | PM.OP ---
Operative Report Date of procedure: October 14, 2023 Pre-op diagnosis: Right bimalleolar ankle fracture Post-op diagnosis: Same Post-op findings: Bimalleolar ankle fracture right ankle Procedure done: Open reduction internal fixation right bimalleolar ankle fracture CPT 56315 Implants: Anatomic fibular plate with 3.5 mm locking and nonlocking screws as well as reactive syndesmotic screw all from [place] [id number] Surgeon: Cedrick Moreno DPM 60 minutes Complications: None Findings: See above Procedure: Patient is a 32-year-old female that has a history of right bimalleolar ankle fracture. The extent of the injury necessitates open reduction internal fixation. A lengthy discussion regarding the procedure, including risks and complications has been had with the patient and is noted in the recent clinic note. Written and verbal consent have been obtained. All patient questions have been answered to the patient?s satisfaction. No written or verbal guarantees have been given or implied. The patient has been NPO since midnight. The history has been reviewed and the history and physical is current. The signed consent was confirmed and placed in the patient chart. Patient imaging has been reviewed and is consistent with the diagnosis. Under mild sedation, the patient was brought into the operating room and placed on the table in the supine position. IV antibiotics were given by the anesthesia team as preoperative surgical prophylaxis. General sedation was then performed by the anesthesiateam. A popliteal block was performed by the anesthesia department. A pneumatic tourniquet was then placed about the right thigh. The operative extremity was then prepped and draped in the usual fashion. The extremity was then elevated and exsanguinated before the tourniquet was inflated to 325 mmHg. After inflation, the following procedure was then performed. Attention was directed to the lateral aspect of the right ankle where an 8 cm incision was made overlying the fibula. Dissection was carried down through subcutaneous the superficial fascia to the level of the periosteum. This was incised to reveal the fibular fracture. The site was cleared of hematoma formation using combination of rongeur, curette and dental pick. After removing hematoma a dijkt-sk-niywe reduction clamp was used to reduce the fibular fracture. Upon achieving anatomic reduction, temporary fixation across fracture site was performed using K wires. Next a 3.5 cannulated headed screw, short thread was inserted and lag screw fashion across the fracture. Good positioning of the screw was noted on C-arm imaging as well as clinically. Next an anatomic fibular plate from [employer] was applied to the lateral aspect of the fibula. The distal and proximal holes of the plate were drilled and filled in standard fashion. The syndesmosis was stressed and was noted to be unstable. At this point drill for syndesmotic screw was used to drill the fibula and tibia. Next a reaction is modic screw from [employer] was inserted across syndesmosis per the manufacture protocol. Good positioning of the plate and screws was noted clinically as well as on C-arm imaging. The site was then irrigated with copious perry of sterile saline before attention was directed to closure. Deep tissue was closed with 2-0 Vicryl followed by subcuticular closure with 3-0 Vicryl and skin closure with 3-0 nylon and horizontal mattress fashion. The tourniquet was let down good hyperemic response was noted to all digits of the right foot. The incision was dressed with Xeroform, 4 x 4 gauze, Kerlix before being placed in a well-padded below-knee posterior splint. The patient tolerated the procedure and anesthesia well and without complication. The patient was transported from the operating room to the recovery room with vital signs stable and vascular status intact to all digits of the right foot. The patient was given both written and verbal instructions to remain nonweightbearing to the operative extremity, to keep dressings/splint clean, dry and intact and to take pain medication as directed. The patient will follow-up in the outpatient setting at their scheduled appointment. The patient was discharged with my personal number and was instructed to call if any questions or issues should arise. They were discharged home once anesthesia criteria was met.
== END 2023-10-14 10:47 | disposition home or self-care (01) ==
PROVIDERS: PCP Family Medicine; Visit Provider Podiatrist Foot & Ankle Surgery
PROC: (CPT 27814; principal; 2023-10-14 07:00)
DX: S82.841A Displaced bimalleolar fracture of right lower leg, initial encounter for closed fracture (principal); X58.XXXA Exposure to other specified factors, initial encounter; E66.01 Morbid (severe) obesity due to excess calories; Z68.43 Body mass index [BMI] 50.0-59.9, adult
CPT/HCPCS: 27814; 73600; 76000; 81025; 84703; C1713; J0131; J0690; J1170; J1885; J2704; J2795; J3010; J3490; J7030

== ENCOUNTER → 2023-10-28 13:13 | Outpatient (BNVA) | payer MEDICAID, SELFPAY | PROVIDERS: PCP Family Medicine; Visit Provider Podiatrist Foot & Ankle Surgery | DX: S82.841D Displaced bimalleolar fracture of right lower leg, subsequent encounter for closed fracture with routine healing; X58.XXXD Exposure to other specified factors, subsequent encounter | CPT/HCPCS: 73610 ==

== ENCOUNTER 2023-11-06 20:42 | Emergency (ER) | payer MEDICAID, SELFPAY ==
[2023-11-06 20:52] VITALS: BP 144/98; PULSE 106; RESP 18; TEMP 36.9; O2SAT 97
--- NOTE | 2023-11-06 20:56 | USR_ITS ---
PROCEDURE INFORMATION: Exam: US Duplex Right Lower Extremity Veins, Limited Exam date and time: 11/06/2023 9:46 PM Age: 33 years old Clinical indication: Pain; Leg, lower; Right; Prior surgery; Surgery date: <1 month; Surgery type: Ankle; Additional info: Swelling, post/op- R/O dvt TECHNIQUE: Imaging protocol: Real-time duplex ultrasound of the right extremity with 2-D mancera scale, color Doppler flow and spectral waveform analysis including responses to compression and other maneuvers (when performed) with image documentation. Limited exam was focused on the right lower extremity veins. COMPARISON: CT ankle RT wo con* [id number] 10/13/2023 12:56 PM FINDINGS: Right deep veins: Unremarkable. The common femoral, femoral, proximal profunda femoral and popliteal veins are patent without thrombus. Normal Doppler waveforms. Normal compressibility and/or augmentation response. Superficial veins: Unremarkable. Saphenofemoral junction is patent without thrombus. Soft tissues: Unremarkable. US/[place] [id number] IMPRESSION: No evidence of deep vein thrombosis.
[2023-11-06 21:17] VITALS: BP 161/85; PULSE 101; RESP 16; O2SAT 96
--- NOTE | 2023-11-06 21:29 | ED_ITS ---
HPI - Extremity Problem 2 General: Chief complaint: Extremity Injury, Lower Stated complaint: recent R ankle surg, leg swollen today pain Time Seen by Provider: 11/06/23 21:14 Source: patient Mode of arrival: wheelchair Limitations: no limitations History of Present Illness: Patient presents emergency department today for evaluation treatment of new onset right lower extremity swelling and right calf pain. Patient has a significant past medical history of open reduction internal fixation of a right bimalleolar fracture back on 10/14. On chart review, does not appear patient is on any type of blood thinning medication. Patient reports that starting today she noticed swelling of her right lower extremity. She also noticed increased pain-especially in the calf. Patient still able to feel her toes but indicates some tingling. She denies any recent reinjury of the extremity. Offhandedly, patient also asked if I would look in her ears. She has had quite a bit of pressure over the last few weeks. She does have nasal congestion with postnasal drip causing sore throat but, feels like when she coughs or sneezes, her eardrums are going to burst. No fever. Review of Systems 2 General: Reports: 10 or more systems reviewed and unremarkable except in HPI and below PFSH ED 2 PFSH: Medical History Gestational diabetes Term , repeat Cannabis dependence with current use Nicotine dependence due to vaping tobacco product Social phobia Generalized anxiety disorder Major depressive disorder, recurrent episode, moderate with anxious distress Social History Smoking and tobacco/nicotine status: current every day tobacco/nicotine user Female Reproductive History: Date of last menstrual period: 10/10/23 Physical Exam 2 Const: COMMON NORMALS: no acute distress, patient oriented x3 and alert HENMT: COMMON NORMALS: normocephalic, atraumatic and hearing grossly normal bilaterally HEAD & SCALP: normocephalic and atraumatic OTHER: Patient with bilateral eardrum bulging and fluid present. Both with fluid bubbles noted. Eye: COMMON NORMALS: Equal, round and reactive pupils present, EOMs intact bilaterally and conjunctivae normal CONJUNCTIVA: Yes conjunctivae normal P UPIL: Yes Equal, round and reactive pupils present Neck/C-Spine: COMMON NORMALS: full ROM and no JVD Lymph: LYMPHATIC: no lymphadenopathy noted Resp: COMMON NORMALS: normal respiratory effort, No retractions and No use of accessory muscles Cardio: COMMON NORMALS: no JVD and regular rate RATE: regular rate Extremity: NARRATIVE EXTREMITY EXAM: Patient is nonweightbearing on her right lower extremity with cast in place. Patient is able to demonstrate a small amount of flexion and extension of her toes in the casting material. Patient does have obvious swelling of the right lower extremity compared to the left but no obvious color change to the exposed skin. Patient is tender to the calf region that is exposed. Nontender to the popliteal region. Once cast was removed, patient was found to have quite a bit of edema on the dorsum of the foot. On the distal portion of the dorsum of the foot there is erythema. On palpation, there are some areas that ortega however, there other areas that do not. No signs of any open wounds save the vertical incision along the lateral ankle which appears to be healing well without draining, wound dehiscence, or surrounding erythema. Neuro: COMMON NORMALS: patient oriented x3 SENSORIUM/ORIENTATION: Yes alert Psych: COMMON NORMALS: mental status grossly normal, Normal thought process present, cooperative and normal affect THOUGHT PROCESS: Normal thought process present Skin: COMMON NORMALS: no rashes or lesions noted and turgor normal N ARRATIVE SKIN EXAM: Patient with return of blanching on pressure to the tips of her right toes less than 2 seconds. GENERAL SKIN EXAM: no rashes or lesions noted and turgor normal Course 2 Vital Signs: Vital signs: Vital Signs Temperature 98.4 F 11/06/23 20:52 Pulse Rate 96 11/06/23 22:44 Respiratory Rate 19 H 11/06/23 22:44 Blood Pressure 141/92 11/06/23 22:44 Pulse Oximetry 97 11/06/23 22:44 Oxygen Delivery Me thod Room Air 11/06/23 22:44 MDM - Extremity (Nontraumatic) Medical Decision Making Patient presents to the ER today for concerns of right calf pain status post ORIF. I did reach out to Dr. Moreno as we will need to remove her cast perform the ultrasound. He indicated that was fine and requested a new splint be placed on the patient and she continues to remain nonweightbearing after her evaluation. Ultrasound was negative for signs of DVT. However, I was concerned that the erythema and swelling of the dorsum of her foot. While some of this is vascular and most likely due to swelling, there is a component of the erythema that does ortega concerning for cellulitis. Patient's white blood cell count is elevated but, could still be due to postoperative status. Patient's incision appears well aligned without dehiscence or infection. Steri-Strips are still in place. Discussed the findings of erythema and edema with Dr. Moreno. He agreed that patient needs to more aggressively elevate the extremity and also agreed with my recommendation to start a short course of Keflex. Patient had a sugar tong/posterior splint replaced while here in the emergency department. She is to keep her upcoming appointment with orthopedics/podiatry. Patient has findings most likely consistent with eustachian tube dysfunction. I will give her a very short course of some oral steroids but encouraged Flonase and Valsalva maneuver. Follow-up with primary care for recheck. Return to ER/urgent care/primary care if there is fever, or draining from the ear canals. Differential Diagnosis Likely cellulitis, superficial thrombophlebitis and lower extremity edema; Unlikely herpes zoster, gout or deep vein thrombosis of lower extremity Lab Data 11/06/23 21:28 11/06/23: Radiology Impressions Venous Duplex 11/06/23 20:56 IMPRESSION: No evidence of deep vein thrombosis. Laboratory Results WBC 14.19 10^3/uL (3.29-11.43) H 11/06/23: RBC 4.79 10^6/uL (3.85-5.65) 11/06/23: Hgb 13.90 g/dL (11.27-16.99) 11/06/23: Hct 42.5 % (36-47) 11/06/23: MCV 88.7 fl (85-98) 11/06/23: MCH 29.0 pg (27-33) 11/06/23: MCHC 32.7 g/dL (30-55) 11/06/23: RDW 13.6 % (12.1-15.1) 11/06/23: Plt Count 430 10^3/cmm (157-399) H 11/06/23 21: MPV 9.6 fL (7.4-10.4) 11/06/23 21: Neut % (Auto) 68.4 % 11/06/23 21: Lymph % (Auto) 23.1 % 11/06/23 21: Bladen % (Auto) 6.8 % 11/06/23: Eos % (Auto) 0.7 % 11/06/23: Baso % (Auto) 0.8 % 11/06/23: Neut # (Auto) 9.69 10^3/uL (1.8-7.7) H 11/06/23: Lymph # (Auto) 3.3 10^3/uL (0.8-4.8) 11/06/23: Bladen # (Auto) 1.0 10^3/uL (0.2-0.9) H 11/06/23: Eos # (Auto) 0.1 10^3/uL (0.0-0.8) 11/06/23: Baso # (Auto) 0.1 10^3/uL (0.0-0.1) 11/06/23: Nucleated RBC % (auto) 0 % 11/06/23: Nucleated RBCs # 0.0 /100WBC 11/06/23: Sodium 135 mmol/L (136-145) L 11/06/23: Potassium 3.8 mmol/L (3.5-5.1) 11/06/23: Chloride 100 mmol/L (98-107) 11/06/23: Carbon Dioxide 24 mmol/L (22-29) 11/06/23 21: Anion Gap 14.8 (5-19) 11/06/23: BUN 16 mg/dL (6-20) 11/06/23: Creatinine 0.8 mg/dL (0.5-0.9) 11/06/23: GFR Calculation 83.7 mL/min (90-130) L 11/06/23: Glucose 87 mg/dL (65-115) 11/06/23: Calculated Osmolality 281 mOsm/kg (285-295) L 11/06/23:28 Calcium 9.8 mg/dL (8.5-10.5) 11/06/23 21:28 Total Bilirubin 0.2 mg/dL (0.15-1.2) 11/06/23 21:28 AST 19 U/L (0-32) 11/06/23 21:28 ALT 26 U/L (0-33) 11/06/23 21:28 Alkaline Phosphatase 73 U/L (35-105) 11/06/23 21:28 Total Protein 7.3 g/dL (6.6-8.7) 11/06/23 21:28 Albumin 4.1 g/dL (3.5-5.2) 11/06/23 21:28 Globulin 3.2 g/dL (1.3-4.6) 11/06/23 21:28 All radiology interpretation(s) finalized by discharge Discharge Plan Discharge Patient Disposition: Home Clinical Impression: Pain of right calf, S/P ORIF (open reduction internal fixation) fracture, Acute dysfunction of both eustachian tubes Condition: Stable Prescriptions: New cephalexin 500 mg capsule 500 mg PO Q8H 7 Days Qty: 21 0RF prednisone 20 mg tablet 20 mg PO BID 3 Days Qty: 6 0RF No Action buspirone 10 mg tablet 10 mg PO BID (DME) Wheelchair See Rx Instructions .Route .MEDSUPPLY Qty: 1 0RF Rx Instructions: As directed ([facility] [place] Shower chair See Rx Instructions .Route .MEDSUPPLY Qty: 1 0RF Rx Instructions: As directed hydrocodone-acetaminophen 5-325 mg tablet 1 tab PO Q6H PRN (Reason: pain) 3 Days Qty: 12 0RF escitalopram oxalate [Lexapro] 10 mg tablet 10 mg PO DAILY (DME) wheelchair with elevated leg rest See Rx Instructions .Route .MEDSUPPLY Qty: 1 0RF Rx Instructions: As directed to HOME cyclobenzaprine 10 mg tablet 10 mg PO Q12H Qty: 20 0RF ondansetron HCl 8 mg tablet 8 mg PO Q8H PRN (Reason: nausea and vomiting) Qty: 21 0RF hydrocodone-acetaminophen 10-325 mg tablet 1 tab PO Q6H 3 Days Qty: 12 0RF hydrocodone-acetaminophen 5-325 mg tablet 1 tab PO Q6H PRN (Reason: pain) Qty: 28 0RF + Iron 1 tab PO DAILY Discharge Orders: Discharge ED (Routine); Ordered 11/06/23 Ordered By: Gricelda Aiken Referrals: Venkatesh Mckeon MD [Primary Care Provider] - Discharge Diet: Usual diet Discharge Activity: Limit activity as instructed Activity Restrictions/Additional Instructions: The ultrasound was negative for signs of DVT. I did speak with Dr. Moreno who also encourages you to more aggressively elevate your right lower extremity. He requests we also start you on a short course of some prophylactic antibiotics as there is some redness to the top of your foot. Keep all upcoming appointments with podiatry. Watch for any new onset fever, change or worsening of pain in your right lower extremity or inability to feel or move your toes in your splint. If any of these occur you need to be seen and reevaluated back here in the emergency department. Coding Level of Care Code ED Fleet Director for Ayan Wilson
[2023-11-06 21:38] LABS: Basophils # 0.1 10^3/uL (0.0-0.1); Basophils % 0.8 %; Eosinophils # 0.1 10^3/uL (0.0-0.8); Eosinophils % 0.7 %; Hematocrit 42.5 % (36-47); Lymphocytes # 3.3 10^3/uL (0.8-4.8); Lymphocytes % 23.1 %; Mean Corpuscular HGB Conc 32.7 g/dL (30-55); Mean Corpuscular Volume 88.7 fl (85-98); Mean Platelet Volume 9.6 fL (7.4-10.4); Monocytes % 6.8 %; Neutrophils # 9.69 10^3/uL (1.8-7.7); Neutrophils % 68.4 %; Nucleated Red Blood Cells % 0 %; Platelet Count 430 10^3/cmm (157-399); Red Blood Count 4.79 10^6/uL (3.85-5.65); Red Cell Distribution Width 13.6 % (12.1-15.1); White Blood Count 14.19 10^3/uL (3.29-11.43)
[2023-11-06 21:52] VITALS: BP 134/91; PULSE 88; RESP 19; O2SAT 97
[2023-11-06 22:24] LABS: Alanine Aminotransferase 26 U/L (0-33); Albumin Level 4.1 g/dL (3.5-5.2); Alkaline Phosphatase 73 U/L (35-105); Anion Gap 14.8 (5-19); Aspartate Amino Transferase 19 U/L (0-32); Blood Urea Nitrogen 16 mg/dL (6-20); Calcium 9.8 mg/dL (8.5-10.5); Carbon Dioxide 24 mmol/L (22-29); Chloride 100 mmol/L (98-107); Globulin 3.2 g/dL (1.3-4.6); Glomerular Filtration Rate 83.7 mL/min (90-130); Glucose 87 mg/dL (65-115); Osmolality Calculated 281 mOsm/kg (285-295); Potassium 3.8 mmol/L (3.5-5.1); Sodium 135 mmol/L (136-145); Total Bilirubin 0.2 mg/dL (0.15-1.2); Total Protein 7.3 g/dL (6.6-8.7)
[2023-11-06 22:44] VITALS: BP 141/92; PULSE 96; RESP 19; O2SAT 97
[2023-11-07] MEDS: cephALEXin 500 mg Capsule PO (00:01)
--- NOTE | 2023-11-07 14:59 | PC.NURSE ---
called pt scripts to [facility] pharmacy as she had miss [facility] pharmacy hours for the weekend
== END 2023-11-07 00:40 | disposition home or self-care (01) ==
PROVIDERS: Emergency Provider Physician Assistant; PCP Family Medicine
DX: M79.661 Pain in right lower leg (principal); H69.83 Other specified disorders of Eustachian tube, bilateral; Z98.890 Other specified postprocedural states; Z72.0 Tobacco use
CPT/HCPCS: 29515; 36415; 80053; 85025; 93971; 99284

== ENCOUNTER → 2023-11-11 14:11 | Outpatient (BNVA) | payer MEDICAID, SELFPAY | PROVIDERS: PCP Family Medicine; Visit Provider Podiatrist Foot & Ankle Surgery | DX: Z98.890 Other specified postprocedural states; S82.841D Displaced bimalleolar fracture of right lower leg, subsequent encounter for closed fracture with routine healing; X58.XXXD Exposure to other specified factors, subsequent encounter | CPT/HCPCS: 73610 ==

== ENCOUNTER → 2023-11-25 14:02 | Outpatient (BNVA) | payer SELFPAY | PROVIDERS: PCP Family Medicine; Visit Provider Podiatrist Foot & Ankle Surgery | DX: Z98.890 Other specified postprocedural states; S82.841D Displaced bimalleolar fracture of right lower leg, subsequent encounter for closed fracture with routine healing; X58.XXXD Exposure to other specified factors, subsequent encounter | CPT/HCPCS: 73610 ==

== ENCOUNTER → 2023-12-08 13:36 | Outpatient (BNVA) | payer SELFPAY | PROVIDERS: PCP Family Medicine; Visit Provider Podiatrist Foot & Ankle Surgery | DX: Z98.890 Other specified postprocedural states; S82.841D Displaced bimalleolar fracture of right lower leg, subsequent encounter for closed fracture with routine healing; X58.XXXD Exposure to other specified factors, subsequent encounter | CPT/HCPCS: 73610 ==

== ENCOUNTER 2025-07-15 12:15 | Emergency (ER) | payer MEDICAID, SELFPAY ==
--- OUTSIDE RECORDS SUMMARY | 2025-07-15 12:19 | XMS_ITS | Clinical Summary ---
Author Organization [facility] Address [address] Attn: Epic Prelude ADT AICHA SCHWARTZ [address] Care Team Providers Care Electronic Controls Repairer Supervisor Name Role Phone Rach Claire Primary Care Provider [phone] Allergies No known active allergies Medications phentermine (ADIPEX P) 37.5 mg tabletIndication s:BMI 40.0-44.9, adult (CMS/HCC) Take 1 Tablet (37.5 mg) by mouth daily before breakfast. 30 Tablet 0 09/28/2017 Active venlafaxine (EFFEXOR XR) 150 mg Extended Release 24 hour capsule Take 150 mg by mouth daily. 09/28/2017 Active ARIPiprazole (ABILIFY) 2 mg tablet Take 2 mg by mouth daily. 09/28/2017 Active vit-iron fumarate-fa (MCKAY ) 28 mg iron- 800 mcg Tablet Take 1 Tablet by mouth daily. 09/28/2017 Active norgestimate-eth inyl estradioL (ORTHO TRI-CYCLEN) 0.18/0.215/0.25 mg-35 mcg (28) tablet Take 1 Tablet by mouth daily. 09/28/2017 Active Active Problems Problem Noted Date Diagnosed Date Recurrent major depressive disorder, in partial remission 09/28/2017 Immunizations Immunization Administration Dates Next Due (M-M-R II/PRIORIX)(12 MO UP) MEASLES, MUMPS AND RUBELLA VIRUS VACCINE, 0.5 ML IM/SUBCUT 11/22/1997,08/22/1997 (PNEUMOVAX 23)(50 YRS UP) PN EUMOCOCCAL POLYSACCHARIDE (PPV23) 0.5 ML, IM 10/03/2009 Dt Dtp Dtap Vaccine 08/22/1997,02/27/1993,01/09 HIB, Unspecified Formulation 08/22/1997, 04/29/1993,02/27/1993,01/09 Hepatitis A Vaccine 07/14/2008 Hepatitis B Vaccine 11/22/1997,08/22/1997,1992 INFLUENZA VACCINE QUADRIVALE NT 3 YR UP PF IM 09/28/2017 IPV/OPV 11/22/1997, 7,02/27/1993,01/09 Meningococcal A Conjugate Vaccine IM 07/14/2008 Family History Medical History Relation Name Comments Stroke Maternal Grandmother Colon Cancer Paternal Grandfather Relation Name Status Comments Father Alive Maternal Grandfather Alive Maternal Grandmother Mother Alive Paternal Grandfather Alive Social History Tobacco Use Types Packs/Day Years Used Date Smoking Tobacco: Every Day Cigarettes Smokeless Tobacco: Never Alcohol Use Standard Drinks/Week Comments Yes 0 (1 standard drink = 0.6 oz pur e alcohol) Comments Unknown Sex and Gender Information Value Date Recorded Sex Assigned at Not on file Legal Sex Female 1:07 AM INVENTORY COORDINATOR Gender Identity Not on file Sexual Orientation Not on file Last Filed Vital Signs Vital Sign Reading Time Taken Comments Blood Pressure 129/82 09/28/2017 10:09 AM INVENTORY COORDINATOR Pulse 97 09/28/2017 10:09 AM INVENTORY COORDINATOR Temperature 36 C (96.8 F) 09/28/2017 10:09 AM INVENTORY COORDINATOR Respiratory Rate 16 09/28/2017 10:09 AM INVENTORY COORDINATOR Oxygen Saturation - - Inhaled Oxygen Concentration - - Weight 118.8 kg (262 lb) 09/28/2017 10:09 AM INVENTORY COORDINATOR Height 162.6 cm (5' 4 ) 09/28/2017 10:09 AM INVENTORY COORDINATOR Body Mass Index 44.97 09/28/2017 10:09 AM INVENTORY COORDINATOR Plan of Treatment Health Maintenance Due Date Last Done Comments DTAP/TDAP/TD VACCINES (5 - Tdap) 2003 08/22/1997, 04/29/1993, 02/27/1993, Additional history exists HPV/Cotest (21-29) 2013 HPV VACCINES (1 - 3-dose SCD M series) 2019 CERVICAL CANCER SCREENING 2022 HPV/Cotest (30-65) 2022 PAP SMEAR 2022 INFLUENZA VACCINE (#1) 2025 09/28/2017 HEPATITIS B VACCINES Completed 11/22/1997, 08/22/1997, 02/27/1993 Care Teams Electronic Controls Repairer Supervisor Relationship Specialty Start Date End Date Rach Claire DO [address] [place] [address] PCP - General Family Practice 09/28/17
--- OUTSIDE RECORDS SUMMARY | 2025-07-15 12:19 | XMS_ITS | Clinical Summary ---
Author Organization [facility] Address [address] [place] [address] Care Team Providers Care Logging Supervisor Name Role Phone Rach Claire Primary Care Provider [phone] Allergies No known active allergies Medications norgestimate-eth inyl estradiol (TRI-SPRINTEC, 28,) 0.18/0.215/0.25 mg-35 mcg (28) tablet Take 1 Tablet by mouth daily. Active vit-iron fumarate-fa (MCKAY ) 28 mg iron- 800 mcg Tablet Take 1 Tablet by mouth daily. Active ARIPiprazole (ABILIFY) 2 mg tablet Take 2 mg by mouth daily. Active venlafaxine (EFFEXOR XR) 150 mg Extended Release 24 hour capsule Take 150 mg by mouth daily. Active phentermine (ADIPEX P) 37.5 mg tabletIndication s:BMI 40.0-44.9, adult (CMS/HCC) Take 1 Tablet (37.5 mg) by mouth daily before breakfast. 30 Tablet 09/28/2017 Active Active Problems Problem Noted Date Diagnosed Date Recurrent major depressive disorder, in partial remission 09/28/2017 Immunizations Immunization Administration Dates Next Due (M-M-R II/PRIORIX)(12 MO UP) MEASLES, MUMPS AND RUBELLA VIRUS VACCINE, 0.5 ML IM/SUBCUT 11/22/1997,08/22/1997 (PNEUMOVAX 23)(50 YRS UP) PN EUMOCOCCAL POLYSACCHARIDE (PPV23) 0.5 ML, IM 10/03/2009 Dt Dtp Dtap Vaccine 08/22/1997, 3,02/27/1993,01/09 HIB, Unspecified Formulation 08/22/1997, 04/29/1993,02/27/1993,01/09 Hepatitis A [...] drink = 0.6 oz pur e alcohol) occasional Comments Unknown Sex and Gender Information Value Date Recorded Sex Assigned at Not on file Legal Sex Female 5:51 AM IT PROJECT MANAGER Gender Identity Not on file Sexual Orientation Not on file Last Filed Vital Signs Vital Sign Reading Time Taken Comments Blood Pressure 129/82 09/28/2017 10:09 AM IT PROJECT MANAGER Pulse 97 09/28/2017 10:09 AM IT PROJECT MANAGER Temperature 36 C (96.8 F) 09/28/2017 10:09 AM IT PROJECT MANAGER Respiratory Rate 16 09/28/2017 10:09 AM IT PROJECT MANAGER Oxygen Saturation 100% 09/28/2017 10:09 AM IT PROJECT MANAGER room air Inhaled Oxygen Concentration - - Weight 118.8 kg (262 lb) 09/28/2017 10:09 AM IT PROJECT MANAGER Height 162.6 cm (5' 4 ) 09/28/2017 10:09 AM IT PROJECT MANAGER Body Mass Index 44.97 09/28/2017 10:09 AM IT PROJECT MANAGER Plan of Treatment Health Maintenance Due Date Last Done Comments DTAP/TDAP/TD VACCINES (5 - Tdap) 2003 08/22/1997, 04/29/1993, 02/27/1993, Additional history exists Preventative Visit-Managed Medicaid 2011 HPV/Cotest (21-29) 2013 HPV VACCINES (1 - 3-dose SCD M series) 2019 CERVICAL CANCER SCREENING 2022 HPV/Cotest (30-65) 2022 PAP SMEAR 2022 INFLUENZA VACCINE (#1) 2025 09/28/2017 HEPATITIS B VACCINES Completed 11/22/1997, 08/22/1997, 02/27/1993 Insurance [facility] JULIO CESAR Care Teams Logging Supervisor Relationship Specialty Start Date End Date Rach Claire DO [address] [place] [address] PCP - General Family Practice 09/28/17
--- OUTSIDE RECORDS SUMMARY | 2025-07-15 12:19 | XMS_ITS | Encounter Summary ---
Author Organization [facility] Address [address] Attn: Epic [place]relude [place] [address] Care Team Providers Care Box Maker Wood Name Role Phone Rach Claire DO Primary Care Provider [phone] Encounter Details Date Type Department Care Team (Late st Contact Info) Description 07/23/2001 Outpatient Historical Yash Mendoza MD [address] [place], [place] [address] Social History Tobacco Use Types Packs/Day Years Used Date Smoking Tobacco: Never Assessed Comments Unknown Sex and Gender Information Value Date Recorded Sex Assigned at Not on file Legal Sex Female 5:51 AM PAINT FORMULATOR Gender Identity Not on file Sexual Orientation Not on file documented as of this encounter Plan of Treatment Not on file documented as of this encounter Visit Diagnoses Not on filedocumented in this encounter Care Teams Box Maker Wood Relationship Specialty Start Date End Date Rach Claire DO [address] [place] [id number] PCP - General Family Practice 09/28/17 documented as of this encounter
--- OUTSIDE RECORDS SUMMARY | 2025-07-15 12:19 | XMS_ITS | Encounter Summary ---
Author Organization [facility] Address [address] Attn: Epic [place] [address] Care Team Providers Care Enrollment Eligibility Representative Name Role Phone Rach Claire DO Primary Care Provider [phone] Encounter Details Date Type Department Care Team (Late st Contact Info) Description 05/10/2001 Inpatient Historical Facundo Santos MD [address] [address] Social History Tobacco Use Types Packs/Day Years Used Date Smoking Tobacco: Never Assessed Comments Unknown Sex and Gender Information Value Date Recorded Sex Assigned at Not on file Legal Sex Female 5:51 AM PULPIT OPERATOR Gender Identity Not on file Sexual Orientation Not on file documented as of this encounter Plan of Treatment Not on file documented as of this encounter Visit Diagnoses Not on filedocumented in this encounter Care Teams Enrollment Eligibility Representative Relationship Specialty Start Date End Date Rach Claire DO [address] [place] [id number] PCP - General Family Practice 09/28/17 documented as of this encounter
[2025-07-15 12:29] VITALS: BP 140/88; PULSE 88; RESP 18; TEMP 36.6; O2SAT 97
--- NOTE | 2025-07-15 12:41 | W.ED.BACK ---
HPI - Back Pain/Injury General: Chief Complaint: Back Pain/Injury Stated Complaint: back pain Time Seen by Provider: 07/15/25 12:21 History of Present Illness: Patient is a 34-year-old female that reports to the emergency room with worsening back pain over 2 months. This is mid spine, and more to the left. It feels like rib pain. She has quite a bit of issues at night. She cannot roll over at times without crying. It does awaken her. 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 Patient is went to a massage therapist 3 weeks ago, which seemed to make it worse. She has current pending appointment for chiropractic services. No other issues with her back. No surgery on her back. No saddle anesthesia. No incontinence of urine. She did attempt to take old hydrocodone from previous surgery, however it did not seem to help. Associated symptoms: Deny abdominal pain, chills, fever(s), nausea or vomiting Related Data Home Medications ?Medication ?Instructions ?Recorded ?Confirmed + Iron 1 tab PO DAILY 03/19/23 12/30/23 escitalopram oxalate 10 mg tablet 10 mg PO DAILY 07/16/23 12/30/23 (Lexapro) buspirone 10 mg tablet 10 mg PO BID 10/12/23 12/30/23 Previous Rx's ?Medication ?Instructions ?Recorded Shower chair #1 ea 10/12/23 Wheelchair #1 ea 10/12/23 hydrocodone 5 mg-acetaminophen 325 1 tab PO Q6H PRN pain 3 days #12 10/12/23 mg tablet tabs hydrocodone 5 mg-acetaminophen 325 1 tab PO Q6H PRN pain #28 tabs 10/14/23 mg tablet wheelchair with elevated leg rest #1 ea 10/16/23 cyclobenzaprine 10 mg tablet 10 mg PO Q12H #20 tabs 10/17/23 ondansetron HCl 8 mg tablet 8 mg PO Q8H PRN nausea and 10/17/23 vomiting #21 tabs hydrocodone 10 mg-acetaminophen 1 tab PO Q6H post op pain 3 days 10/20/23 325 mg tablet #12 tabs CAM boot #1 ea 11/11/23 ASO brace #1 ea 12/08/23 celecoxib 200 mg capsule 200 mg PO DAILY #30 caps 07/15/25 gabapentin 300 mg capsule 300 mg PO BEDTIME 1 day #30 caps 07/15/25 metaxalone 800 mg tablet 800 mg PO QID PRN muscle pain #30 07/15/25 tabs methylprednisolone 4 mg tablets in See Rx Instructions PO .COMPLEX 07/15/25 a dose pack (Medrol (Yvan)) #21 ea Allergies Allergy/AdvReac Type Severity Reaction Status Date / Time No Known Allergies Allergy Verified 12/30/23 08:39 Review of Systems Const: Denies: fever(s) or chills Eyes: Denies: change in vision or blurry vision ENMT: Denies: throat pain or mouth pain Resp: Denies: dyspnea or productive cough GI: Denies: abdominal pain, nausea or vomiting Musc: Reports: back pain and muscle cramps; Denies: neck pain, extremity pain, extremity swelling, joint pain, joint swelling, joint redness, joint warmth, joint stiffness or limited range of motion Skin/Breast: Denies: rash or pruritus Neuro: Denies: headache(s), numbness in extremities, weakness in extremities or sensory changes Psych: Denies: anxiety or depression PFS ED PFSH: Medical History (Updated 07/15/25 @ 12:42 by CHRISTINE Randle) Gestational diabetes Term , repeat Cannabis dependence with current use Nicotine dependence due to vaping tobacco product Social phobia Generalized anxiety disorder Major depressive disorder, recurrent episode, moderate with anxious distress Social History Smoking and tobacco/nicotine status: current every day tobacco/nicotine user Physical Exam Const: COMMON NORMALS: no acute distress, average body habitus, patient oriented x3, no limitations, healthy appearing and alert HENMT: COMMON NORMALS: normocephalic and atraumatic HEAD & SCALP: normocephalic and atraumatic Neck/C-Spine: COMMON NORMALS: full ROM, no lymphadenopathy, supple and no meningeal signs GENERAL: Yes trachea midline and No anterior neck swelling Chest: COMMONS NORMALS: normal inspection of the chest and normal palpation of entire chest wall Resp: COMMON NORMALS: normal respiratory effort, No retractions and clear to auscultation bilaterally AUSCULTATION: clear to auscultation bilaterally Cardio: COMMON NORMALS: regular rate and regular rhythm RATE: regular rate RHYTHM: regular rhythm : COMMON NORMALS: Yes no CVA tenderness BLADDER/KIDNEY EXAM: Yes no CVA tenderness Back/Pelvis: COMMON NORMALS: no CVA tenderness and thoraco-lumbar ROM normal THORACIC SPINE/UPPER BACK: No thoracic spinal tenderness and Yes paraspinal muscle spasm Thoracic paraspinal muscle spasm: left Left thoracic paraspinal muscle spasm: T6, T7 and T8 LUMBAR SPINE/LOWER BACK: Yes straight leg raise negative bilaterally and Yes bend over test abnormal (leg discrepancy the left shorter 2 cm than than right) COCCYX: no swelling and no tenderness BACK IMAGE (FEMALE):  1. tenderness Neuro: COMMON NORMALS: patient oriented x3 SENSORIUM/ORIENTATION: Yes alert MENINGEAL SIGNS: Yes no meningeal signs Psych: COMMON NORMALS: mental status grossly normal and Normal thought process present THOUGHT PROCESS: Normal thought process present Skin: COMMON NORMALS: no rashes or lesions noted and no wounds GENERAL SKIN EXAM: no rashes or lesions noted Course Reevaluation(s): Reevaluation #1: Improved after Toradol and Norflex. 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 She reports to the emergency room with worsening pain that has been going on to 2 months. This is T6/T8 to the left. It is not midline. There are no additional red flags. This has been waking her up at night, and tears. [place] did not seem to help. I suspect this is inflammatory in nature, as well as her balance, and posture. We discussed all of the options. Patient has follow-up with chiropractor, and primary care. Will give her Norflex, Toradol so she feels better, and Medrol dosepak, Celebrex, gabapentin, and metaxalone to avoid sedation. All of her questions answered to her understanding. Medical Records I reviewed the patient's medical records. No radiology studies performed this visit Discharge Plan Discharge Patient Disposition: Home Clinical Impression: Muscle spasm of back Thoracic back pain Qualifiers: Chronicity: acute Back pain laterality: left Qualified Code(s): M54.6 - Pain in thoracic spine Condition: Stable Prescriptions: New methylprednisolone [Medrol (Yvan)] 4 mg tablets,dose pack See Rx Instructions .ROUTE .COMPLEX Qty: 21 0RF Rx Instructions: for 6 days metaxalone 800 mg tablet 800 mg PO QID PRN (Reason: muscle pain) Qty: 30 0RF gabapentin 300 mg capsule 300 mg PO BEDTIME 1 Days Qty: 30 0RF celecoxib 200 mg capsule 200 mg PO DAILY Qty: 30 0RF No Action buspirone 10 mg tablet 10 mg PO BID (DME) Wheelchair See Rx Instructions .Route .MEDSUPPLY Qty: 1 0RF Rx Instructions: As directed (DME) Shower chair See Rx Instructions .Route .MEDSUPPLY Qty: 1 0RF Rx Instructions: As directed hydrocodone-acetaminophen 5-325 mg tablet 1 tab PO Q6H PRN (Reason: pain) 3 Days Qty: 12 0RF (DME) CAM boot See Rx Instructions .Route .MEDSUPPLY Qty: 1 0RF Rx Instructions: As directed escitalopram oxalate [Lexapro] 10 mg tablet 10 mg PO DAILY (DME) ASO brace See Rx Instructions .Route .MEDSUPPLY Qty: 1 0RF Rx Instructions: As directed (DME) wheelchair with elevated leg rest See Rx Instructions .Route .MEDSUPPLY Qty: 1 0RF Rx Instructions: As directed to HOME cyclobenzaprine 10 mg tablet 10 mg PO Q12H Qty: 20 0RF ondansetron HCl 8 mg tablet 8 mg PO Q8H PRN (Reason: nausea and vomiting) Qty: 21 0RF hydrocodone-acetaminophen 10-325 mg tablet 1 tab PO Q6H 3 Days Qty: 12 0RF hydrocodone-acetaminophen 5-325 mg tablet 1 tab PO Q6H PRN (Reason: pain) Qty: 28 0RF + Iron 1 tab PO DAILY Discharge Orders: Discharge ED (Routine); Ordered 07/15/25 Ordered By: Karlie Jhaveri Referrals: Venkatesh Mckeon MD [Primary Care Provider, Family Practice] Discharge Diet: Usual diet Discharge Activity: Limit activity as instructed Patient Instructions: Thoracic Back Strain (ED), Core Strengthening Exercises (ED), Patient Portal & Tess Instructions Activity Restrictions/Additional Instructions: - Take medication as directed -If Skelaxin/metaxalone is not covered by your insurance, show them the GoodRx coupon. You can have slight sedative side effects, however not as intense as the other muscle relaxers. -Medrol Dosepak can be taken all at once in the morning for the whole day. Your directions will say use as directed, which you may do as well. -Gabapentin should be strictly at night as it does cause sleepiness, and helps with peripheral nerve spasms. -Do not forget the ice to your back, especially before you go to sleep. -Follow-up with your doctor to further investigate any issues with your musculoskeletal spasming. Do not forget to stretch out your left leg when you get control of your pain. -Return to ED if you do have worsening pain, redness, fever greater 100.4 ?F -Take care of yourself, and your back Print Language: Swazi Coding Level of Care Code ED [employer]er for [employer]yan Wilson
[2025-07-15 13:02] VITALS: BP 142/88; PULSE 96; O2SAT 98
[2025-07-15] MEDS: orphenadrine 30 mg/mL Inj 2 mL 60 MG IM (13:04)
== END 2025-07-15 13:22 | disposition home or self-care (01) ==
PROVIDERS: Emergency Provider Physician Assistant; PCP Family Medicine
DX: M54.6 Pain in thoracic spine (principal); M62.830 Muscle spasm of back; Z72.0 Tobacco use
CPT/HCPCS: 96372; 99284; J1885; J2360

== ENCOUNTER 2025-07-24 10:47 | Outpatient (CLI) | payer MEDICAID, SELFPAY ==
--- NOTE | 2025-07-24 10:56 | US_ITS ---
WS: [id number] ULTRASOUND SOFT TISSUES LEFT lateral neck. HISTORY: neck lump COMPARISON: None available. TECHNIQUE: 2-D and color Doppler imaging is submitted. Ultrasound performed in the area of interest as directed by the patient. There is a small elliptical nodule measuring 7 x 2 x 10 mm corresponding to a small benign lymph node in the area of concern. No adenopathy. US/US soft tissue/extremity [id number] IMPRESSION: Small benign-appearing LEFT cervical chain lymph node corresponds to the palpab le abnormality.
== END 2025-07-24 10:48 | disposition home or self-care (01) ==
PROVIDERS: PCP Family Medicine; Visit Provider Family Medicine
DX: R22.1 Localized swelling, mass and lump, neck (principal)
CPT/HCPCS: 76882